=== PATIENT | male | born 1990 | race African-American/Black ===

== ENCOUNTER → 2018-04-10 | Day surgery (SDC) | payer MEDICAID ==
[~2018-04-10] MED LIST: ACETAMINOPHEN 1,000 MG/100 ML BTL IV ONE; BUPIVACAINE 0.25% W/EPI MPF 30ML VIAL IVP ONE; CEFAZOLIN 2 Gram 2 GM/50 ML BAG IVPB ONE; DEXAMETHASONE 4 MG/ML 1ML VIAL IVP ONE; FENTANYL PF 100MCG/2ML VIAL IV ONE; HYDROCODONE/APAP 5/325MG TABLET PO ONE; LIDOCAINE 1% MDV (10MG/ML) 20ML VIAL SQ ONE; MIDAZOLAM HCL 2MG/2ML VIAL IV ONE; ONDANSETRON HCL IV 4 MG/2 ML VIAL IVP ONE; PROPOFOL 10 MG/ML VIAL IV ONE; ROCURONIUM BROMIDE 50MG/5ML VIAL IV ONE; ROPIVACAINE HCL (NAROPIN) /PF 5MG/ML 20ML VIAL IV ONE; SEVOFLURANE 250 ML INH ONE; SUGAMMADEX SODIUM 200 MG/2 ML VIAL IV ONE
[2018-04-10 06:55] LABS: BASO % 0.5 % (0-6); EOS % 3.4 % (0-6); GRAN % 54.3 % (47-80); HEMATOCRIT 49.7 % (42.0-52.0); HEMOGLOBIN 16.6 gm/dl (14.0-18.0); MEAN CELL VOLUME 96.7 fl (81-97); MEAN CORPUSCULAR HEMOGLOBIN 32.3 pg (27-33); MEAN CORPUSCULAR HGB CONC 33.4 g/dl (32-36); MEAN PLATELET VOLUME 11.3 fl (7.4-10.4); MONO % 8.8 % (0-9); PLATELET COUNT 221 K/uL (130-400); RED BLOOD COUNT 5.14 M/uL (4.40-5.70)
--- NOTE | 2018-04-11 12:10 | Operative Note ---
DATE OF SURGERY: 04/10/2018 Surgeon: Kevin Arvizu DO PREOPERATIVE DIAGNOSIS: Reducible left inguinal hernia. POSTOPERATIVE DIAGNOSIS: Reducible left inguinal hernia. OPERATION: Open left inguinal herniorrhaphy with mesh. Indication: The patient is a 27-year-old male who has had ongoing pain and bulging in his left inguinal region. On exam, he had a fairly large reducible hernia. We did discuss repair. Risks, benefits, and alternatives were discussed. Risks include bleeding, infection, acute or chronic pain, recurrence. He understood this fully. Thereafter, consent was signed and questions answered. PROCEDURE: The patient was taken to the operating room and placed in a supine position. General anesthesia was administered per the department of anesthesia. The patient's left groin was shaved of hair and prepped and draped in the usual fashion. At this time, adequate timeout was performed. The site was confirmed. He did receive preoperative antibiotic as well as inguinal block by department of anesthesia. At this time, oblique region was anesthetized with a total of 5 mL of 0.25% Sensorcaine with epinephrine. A 4 cm incision was made. This was carried down through Jessica layer to the aponeurosis of the external oblique. This was cleaned off. A joana was made with a scalpel blade and enlarged through the superficial inguinal ring with Metzenbaum scissors. Care was taken not to injure the underlying spermatic cord or ilioinguinal nerve. At this time, superior and inferior flaps are developed and a Masood was placed on the spermatic cord. This was dissected free from the underlying transversalis fascia and retracted laterally with a [place] drain. Floor was inspected and noted to be free of any direct herniation. Cremasteric fibers were taken down. They were noted to be very thick and inflamed secondary to the chronic hernia. The hernia sac was identified. This was dissected free from the cord structures. This was opened and contained omentum which was reduced. High ligation was done with 0 Vicryl. The sac was then amputated and passed off the field. A left-sided ProGrip mesh was obtained. This was placed on the floor of the inguinal canal with excellent overlap of the pubic tubercle. Sutures went at the level of the pubic tubercle, second portion of the inguinal ligament, and internal oblique aponeurosis. Lateral triangle was protected with the lateral aspect of the mesh. At this time, the aponeurosis was closed over the cord with 2-0 Vicryl. Jessica layer was closed with 3-0 Vicryl and skin was closed with 4-0 Vicryl. He was taken to the recovery room in satisfactory condition. FINDINGS AT THE TIME OF SURGERY: Left inguinal hernia, indirect. CC: ELIAZAR Patrick
== END | disposition home or self-care (01) ==
LOC: SUR 06:40
PROVIDERS: ATTEND Surgery
DX: K43.2 Incisional hernia without obstruction or gangrene (principal)
CPT/HCPCS: 49505; 00830; 85025; J2405; J3010; J0690; J2795; J3490

== ENCOUNTER 2019-03-18 20:20 | Emergency (ER) | payer MEDICAID ==
--- NOTE | 2019-03-18 20:40 | Emergency Department Record ---
History of Present Illness - General Chief Complaint: Ankle/Foot Injury Stated Complaint: RT ANKLE INJURY Time Seen by Provider: 03/18/19 20:28 Source: Patient Mode of Arrival: Ambulatory Limitations: No limitations - History of Present Illness Initial Comments: The patient injured his R ankle over his achilles tendon 5 hours ago. He was playing basketball and jumped up and felt a "pop" when he landed. He believes he ruptured his achilles tendon. Complaint: Ankle injury Onset/Timin -: Hour(s) Place: Street/outdoors Improves With: Rest, Other Worsens With: Movement Context: Jumping Associated Symptoms: Snap/pop sensation, Swelling, Able to partially bear weight - Related Data Home Medications Medication Instructions Recorded Confirmed Last Taken No Home Med [NO HOME MEDS] 03/18/19 03/18/19 Unknown Allergies Allergy/AdvReac Type Severity Reaction Status Date / Time No Known Drug Allergies Allergy Unverified 10/21/17 10:54 Travel Screening - Travel/Exposure Within Last 30 Days Have you traveled within the last 30 days?: No - Travel/Exposure Within Last Year Have you traveled outside the [place] in the last year?: No - Additonal Travel Details Have you been exposed to anyone with a communicable illness?: No - Travel Symptoms Symptom Screening: None Review of Systems Constitutional: Denies: Chills, Fever Past Medical History - SOCIAL HISTORY Smoking Status: Current every day smoker Alcohol Use: None Drug Use: None - RESPIRATORY Hx Respiratory Disorders: Yes Hx Asthma: Yes (controlled without inhalers) Hx Pneumonia: Yes (as a child) - CARDIOVASCULAR Hx Cardio Disorders: No - NEURO Hx Neuro Disorders: No - GI Hx GI Disorders: Yes Hx Abdominal Pain: Yes (left groin) - Hx Genitourinary Disorders: No - ENDOCRINE Hx Endocrine Disorders: No - MUSCULOSKELETAL Hx Musculoskeletal Disorders: Yes - PSYCH Hx Psych Problems: Yes Hx Anxiety: Yes Hx Depression: Yes Comment:: ADHD - HEMATOLOGY/ONCOLOGY Hx Hematology/Oncology Disorders: No Family Medical History Any Significant Family History?: No Hx Cancer: Mother Physical Exam - General General Appearance: Alert, Oriented x3, Cooperative, No acute distress - Head Head exam: Atraumatic, Normocephalic, Normal inspection - Eye Eye exam: Normal appearance - Extremities Extremities exam: Tenderness (Over the R achilles tendon where there clearly is a rupture of the tendon.). negative: Normal inspection (There is mild edema over the R achilles tendon.), Calf tenderness, Full ROM (The patient is not able to plantar flex the R foot against any resistance. He has a pos. Koenig test.), Joint swelling Course Vital Signs 03/18/19 20:26 Temperature 97.9 F Pulse Rate [ 79 Pulse Ox Probe] Respiratory 20 Rate Blood Pressure 124/82 [Left Arm] Pulse Ox 96 - Reevaluation(s) Reevaluation #1: I did discuss the case with Dr. Haro and he is willing to see the patient in the [facility] on Tue. The patient is to be non-weight bearing until then. 03/18/19 20:58 Medical Decision Making - Data Complexity MDM Data: X-Ray Ordered and/or Reviewed - Radiology Data Radiology results: Report reviewed (R ankle: neg for any acute changes.) Disposition Disposition: Discharge Clinical Impression: Achilles tendon rupture Qualifiers: Encounter type: initial encounter Laterality: right Qualified Code(s): S86.011A - Strain of right Achilles tendon, initial encounter Disposition: Home, Self-Care Condition: (2) Stable Instructions: Achilles Tendon Rupture (ED) Additional Instructions: Please wear the boot during the day and do not walk on it. Use crutches at all times for walking and use Tylenol or Motrin for pain. Please see Dr. Haro in the Specialty clinic on Tuesday. Referrals: [facility] Special[facility] [Provider Group] Forms: Patient Portal Access Time of Disposition: 21:02 Quality - Quality Measures Quality Measures: N/A - Blood Pressure Screening View Details: Yes Does Patient Have Any of the Following: No Blood Pressure Classification: Pre-Hypertensive BP Reading Systolic Measurement: 124 Diastolic Measurement: 82 Screening for High Blood Pressure: < Pre-Hypertensive BP, F/U Documented > [[id number]] Pre-Hypertensive Follow-up Interventions: Referral to alternative/primary care provider.
--- NOTE | 2019-03-20 08:54 | RADIOLOGY REPORT ---
EXAMINATION: Right ankle. CLINICAL HISTORY: Trauma and pain. TECHNIQUE: Three views of the right ankle are obtained. FINDINGS: No acute fracture or dislocation is identified. There is no evidence of joint effusion. IMPRESSION: No evidence of acute ankle injury. MTDD
== END 2019-03-18 21:10 | disposition home or self-care (01) ==
LOC: ER 20:20
DX: S86.011A Strain of right Achilles tendon, initial encounter (principal); X50.0XXA Overexertion from strenuous movement or load, initial encounter; Y93.67 Activity, basketball; Y92.410 Unspecified street and highway as the place of occurrence of the external cause
CPT/HCPCS: 99283; 99284

== ENCOUNTER 2019-03-27 08:01 | Day surgery (SDC) | payer MEDICAID ==
[~2019-03-27 08:01] MED LIST changes: -ACETAMINOPHEN 1,000 MG/100 ML BTL IV ONE; +ACETAMINOPHEN 1,000 MG/100 ML BTL IVPB ONE; -BUPIVACAINE 0.25% W/EPI MPF 30ML VIAL IVP ONE; -CEFAZOLIN 2 Gram 2 GM/50 ML BAG IVPB ONE; -DEXAMETHASONE 4 MG/ML 1ML VIAL IVP ONE; -FENTANYL PF 100MCG/2ML VIAL IV ONE; -HYDROCODONE/APAP 5/325MG TABLET PO ONE; -LIDOCAINE 1% MDV (10MG/ML) 20ML VIAL SQ ONE; -MIDAZOLAM HCL 2MG/2ML VIAL IV ONE; -ONDANSETRON HCL IV 4 MG/2 ML VIAL IVP ONE; -PROPOFOL 10 MG/ML VIAL IV ONE; -ROCURONIUM BROMIDE 50MG/5ML VIAL IV ONE; -ROPIVACAINE HCL (NAROPIN) /PF 5MG/ML 20ML VIAL IV ONE; -SEVOFLURANE 250 ML INH ONE; -SUGAMMADEX SODIUM 200 MG/2 ML VIAL IV ONE
[2019-03-27] MEDS ORDERED: DEXAMETHASONE 4 MG/ML 1ML VIAL IVP ONE (08:02)
[2019-03-27] MEDS ORDERED: ONDANSETRON HCL IV 4 MG/2 ML VIAL IVP ONE (08:02)
[2019-03-27] MEDS ORDERED: PROPOFOL 10 MG/ML VIAL IV ONE (08:02)
[2019-03-27] MEDS ORDERED: LIDOCAINE 2% MDV (20MG/ML) 20ML VIAL IV ONE (08:02)
[2019-03-27] MEDS ORDERED: KETOROLAC 30 MG/ML VIAL IVP ONE (08:02)
[2019-03-27] MEDS ORDERED: SEVOFLURANE 250 ML INH ONE (08:02)
[2019-03-27] MEDS ORDERED: FENTANYL PF 100MCG/2ML VIAL IV ONE (08:02)
[2019-03-27] MEDS ORDERED: ROPIVACAINE HCL (NAROPIN) /PF 5MG/ML 20ML VIAL IV ONE (08:02)
[2019-03-27] MEDS ORDERED: ROCURONIUM BROMIDE 50MG/5ML VIAL IV ONE (08:02)
[2019-03-27] MEDS ORDERED: MIDAZOLAM HCL 2MG/2ML VIAL IV ONE (08:02)
[2019-03-27] MEDS ORDERED: RINGERS SOLUTION,LACTATED 1,000 ML IV ONE ×2 (08:59→11:20)
[2019-03-27] MEDS ORDERED: HYDROCODONE/APAP 5/325MG TABLET PO ONE (12:43)
--- NOTE | 2019-03-27 17:31 | Operative Note ---
DATE OF SURGERY: 03/27/2019 SURGEON: Alphonso Haro DO PREOPERATIVE DIAGNOSIS: Rupture of the right Achilles tendon. POSTOPERATIVE DIAGNOSIS: Rupture of the right Achilles tendon. OPERATION: Open repair of the right Achilles tendon. DESCRIPTION OF PROCEDURE: This 28-year-old male was taken to the operating room and placed in the supine position on the operating room table. Once the patient had been anesthetized, he was placed on the prone position with pads on either side and his arm safely protected. There was a pad under his knees as well. A pneumatic tourniquet placed on the right proximal thigh. The left lower extremity was then prepped with Hibiclens and draped in the usual sterile fashion. It was exsanguinated and the tourniquet inflated to 300 mmHg. An incision was made posteriorly on the Achilles centered over the tear which was about 2 inches above the attachment onto the calcaneus. This was opened, subcutaneous tissue divided, the paratenon divided as well and protected. The sensory nerve identified and protected. The wound was irrigated and debrided and a significant amount of debris was present within the wound. Typical appearance of the Achilles rupture, and so we used scissors to cut back to healthy appearing Achilles tendon on both ends. We then used a #2 FiberWire suture and a [place] type stitch, one in the superior segment and one in the inferior, and then the foot was plantar flexed and the two drawn together and knot tied securely in the middle. Both ends of the suture were tied, and this was reinforced with 0 Vicryl being sutured circumferentially around the tendon for additional support. The wound again irrigated. We then closed the paratenon with a 3-0 Vicryl. The subcutaneous tissue closed with the same suture and the skin closed with 4-0 nylon suture. Sterile dressings were applied with a plaster splint immobilization with the foot in relaxed plantar flexion. The patient was then taken to the recovery room in satisfactory condition. GROSS PATHOLOGY: This patient demonstrated a complete rupture of the Achilles tendon which was brought back together anatomically suturing healthy ends of tendon back together. MICHAEL
== END 2019-03-27 13:15 | disposition home or self-care (01) ==
LOC: SUR 08:01
PROVIDERS: ATTEND Orthopaedic Surgery
DX: S86.011A Strain of right Achilles tendon, initial encounter (principal); J45.909 Unspecified asthma, uncomplicated; F17.210 Nicotine dependence, cigarettes, uncomplicated; F90.9 Attention-deficit hyperactivity disorder, unspecified type
CPT/HCPCS: 76942; J1885; J2405; J7120